=== PATIENT | male | born 1965 | race Caucasian/White ===

== ENCOUNTER → 2016-11-20 | Outpatient (CLI) | payer BC ==
[~2016-11-20] MED LIST: LIPI20TA PO; NAPR500T3 PO; VALI5TAB PO
--- NOTE | 2016-11-20 17:04 | REP ---
Low-dose lung screening CT: Wound the studies performed without IV contrast and presented at lung windowing only. Comparisons are 10/25/2015 and 04/27/2013. There is a 5 mm nodule in the lateral basilar segment of the left lower lobe on image 91. This is unchanged from both prior studies. There are no other lung nodules or masses. There is dependent atelectasis in the posterior sulcus of the right lung. This is unchanged. The study is insensitive for adenopathy. There are no pleural effusions. Cardiac size is normal. Impression: Category 2 low-dose lung screening CT. Probability of malignancy is less than 1%. Continued annual low-dose screening lung CT is recommended. Signed by Alonso Alberts MD 11/20/2016 04:56 P
== END ==
LOC: M RAD 16:23
PROVIDERS: ATTEND Internal Medicine Pulmonary Disease
DX: F17.210 Nicotine dependence, cigarettes, uncomplicated (principal)

== ENCOUNTER → 2017-11-26 | Outpatient (CLI) | payer BC | LOC: M RAD 14:32 | DX: Z12.2 Encounter for screening for malignant neoplasm of respiratory organs (principal); F17.218 Nicotine dependence, cigarettes, with other nicotine-induced disorders | CPT/HCPCS: G0297 ==

== ENCOUNTER 2018-06-12 22:00 | Inpatient (IN) | payer BC ==
[~2018-06-12] VITALS: Ht 182.9 cm; Wt 95.5 kg
[~2018-06-12 22:00] MED LIST changes: +NAPR-885 PO; -NAPR500T3 PO
[2018-06-12] MEDS ORDERED: INCR1INH INH (22:09)
[2018-06-12] MEDS ORDERED: BREO1INH3 INH (22:09)
[2018-06-12] MEDS ORDERED: DOXY-350 PO (22:09)
[2018-06-12] MEDS ORDERED: NS 1,000 ML IV ONE (23:00)
[2018-06-12] MEDS ORDERED: ISOVUE-370 76% 100ML VIAL (Q9967) As Ordered ONE (23:04)
[2018-06-13 00:06] LABS: ALBUMIN 3.8 GM/DL (3.2-5.2); ALT/SGPT 19 U/L (12-78); BILIRUBIN,DIRECT < 0.1 MG/DL (0.0-0.2); BILIRUBIN,TOTAL 0.4 MG/DL (0.2-1.0); BLOOD UREA NITROGEN 24 MG/DL (7-18); CALCIUM LEVEL 8.2 MG/DL (8.5-10.1); CARBON DIOXIDE LEVEL 24 MEQ/L (21-32); CHLORIDE LEVEL 108 MEQ/L (98-107); CREATININE FOR GFR 1.16 MG/DL (0.70-1.30); GLOMERULAR FILTRATION RATE > 60.0 (>56); GLUCOSE, FASTING 102 MG/DL (70-100); SODIUM LEVEL 138 MEQ/L (136-145)
[2018-06-13 00:13] LABS: BASO # 0.1 10^3/uL (0.0-0.2); BASO % 0.5 % (0.0-1.0); EOS # 0.2 10^3/uL (0.0-0.50); EOS % 1.3 % (0.0-3.0); HEMATOCRIT 45.8 % (42.0-52.0); HEMOGLOBIN 15.3 g/dl (13.5-17.5); LYMPH # 2.4 10^3/uL (1.5-4.5); LYMPH % 15.5 % (24.0-44.0); MEAN CORPUSCULAR HEMOGLOBIN 28.9 pg (27.0-33.0); MEAN CORPUSCULAR HGB CONC 33.4 g/dl (32.0-36.5); MEAN CORPUSCULAR VOLUME 86.6 fl (80.0-96.0); MONO # 0.9 10^3/uL (0.0-0.8); MONO % 6.1 % (0.0-5.0); NEUTROPHILS # 11.6 10^3/uL (1.8-7.7); NEUTROPHILS % 76.1 % (36.0-66.0); PLATELET COUNT, AUTOMATED 229 10^3/uL (150-450); RED BLOOD COUNT 5.29 10^6/uL (4.30-6.10); WHITE BLOOD COUNT 15.2 10^3/uL (4.0-10.0)
[2018-06-13 00:36] LABS: ERYTHROCYTE SEDIMENTATION RATE 6 mm/hr (0-20)
--- NOTE | 2018-06-13 01:21 | REPVR ---
EXAM: CT Neck With Contrast EXAM DATE/TIME: 06/12/2018 10:59 PM CLINICAL HISTORY: 53 years old, male; Pain; Cyst under chin; Swelling under chin TECHNIQUE: Imaging protocol: Axial computed tomography images of the neck with intravenous contrast. Coronal and sagittal reformatted images were created and reviewed. Radiation optimization: All CT scans at this facility use at least one of these dose optimization techniques: automated exposure control; mA and/or kV adjustment per patient size (includes targeted exams where dose is matched to clinical indication); or iterative reconstruction. Contrast material: ISO; Contrast volume: 75 ml; Contrast route: AC; COMPARISON: No relevant prior studies available. FINDINGS: Sinuses: There is a 1.9 cm mucous retention cyst in the base of the left maxillary sinus. There is mild opacification of the ethmoid sinuses. The sinuses were not fully imaged. Nasopharynx: Normal. Oropharynx: There is a punctate calcification in the left palatine tonsil, which represents a palatine tonsillolith and is the sequela of prior infection and/or inflammation. There is mild tonsillar hypertrophy. No tonsillar or peritonsillar abscess is noted. Hypopharynx: Normal. Larynx: Normal. Normal epiglottis. Retropharyngeal space: Normal. No retropharyngeal fluid collection. Submandibular/Parotid glands: Normal. Glands are normal in size. Thyroid: Normal. No enlarged or calcified nodules. Lymph nodes: No lymphadenopathy. Trachea: Normal. Lungs: There are paraseptal emphysematous changes in the lung apices. Vasculature: The vertebral arteries, common carotid arteries, internal carotid arteries, and external carotid arteries are patent. There is no dissection. The internal jugular veins are patent. There are mild atherosclerotic calcifications of the proximal left internal carotid artery and intracranial portions of both internal carotid arteries. Dental: There has been extraction of the right lower first molar. There is a small periapical lucency associated with the right upper second premolar, which may represent a periapical abscess (image 25 of the sagittal series 203). There is also a periapical lucency associated with the left lower first molar, which may represent a periapical abscess or residual periapical abscess status post root canal (image 39 of the sagittal series 203). Mastoid air cells: Normal as visualized. No mastoid effusion. Bones/joints: There are degenerative changes in the cervical spine. There is no fracture. Soft tissues: There is a 1.5 cm x 2.4 cm x 2.6 cm submandibular fluid collection just inferior to the mandibular symphysis with surrounding inflammatory fat stranding, which is compatible with a submandibular space abscess. IMPRESSION: 1. 1.5 cm x 2.4 cm x 2.6 cm submandibular space abscess. 2. Small periapical lucency associated with the right upper second premolar, which may represent a periapical abscess. 3. Periapical lucency associated with the left lower first molar, which may represent a periapical abscess or residual periapical abscess status post root canal. Electronically signed by: Marv Skaggs On 06/13/2018 01:20:52 AM
[2018-06-13] MEDS ORDERED: dexameTHASONE 20 MG/5 ML VIAL (J1100) IV ONE (02:00)
[2018-06-13] MEDS ORDERED: AMPICILLIN SOD/SULBACTAM SOD 3 GM in D5W MINI-BAG PLUS 100 ML IV ONE (02:00)
[2018-06-13] MEDS ORDERED: VENTAER INH (02:04)
[2018-06-13] MEDS ORDERED: ALBUTEROL 90 MCG/ACT 8GM HFA INHALER INH PRN (02:15)
[2018-06-13] MEDS ORDERED: ACETAMINOPHEN TAB 650MG DOSE (2X325MG) PO PRN (02:15)
[2018-06-13] MEDS ORDERED: diazePAM 5 MG TAB PO PRN (02:15)
--- NOTE | 2018-06-13 02:40 | HPEPDOC ---
General Date of Admission Jun 13, 2018 at 01:51 Chief Complaint The patient is a 53-year-old male admitted with a reason for visit of Submandib ular Abscess. History of Present Illness 53 y/o M had right lower molar tooth extraction on 05/01/2018 after that he was on PO Augmentin for 2 weeks. Pt noticed swelling underneath his chin few days ago, out patient CT was suggestive of submandibular salivary gland stone, pt was prescribed PO Doxycycline and outpatient ENT referral was given. Pt came to ER for c/o worsening swelling underneath his chin associated with pain. In ER pt was found with vitals of BP 146/67, HR 83, RR 16, Temp 98.0, SpO2-99% on RA; CT was suggestive of submandibular abscess. ER team consulted ENT service- recommendations were iv unasyn. Hospitalist service was consulted to admit the pt for further management. Pt was seen and examined at bedside in ER. Pt c/o swelling underneath his chin and mild pain. Home Medications Scheduled Atorvastatin Calcium (Lipitor) 20 Mg Tab, 20 MG PO QPM, (Reported) Doxycycline Monohydrate (Doxycycline) 100 Mg Capsule, 100 MG PO BID, (Reported) STARTED 06/11/18 IN AFTERNOON; FOR 10 DAYS Fluticasone/Vilanterol (Breo Ellipta 200-25 Mcg INH) 1 Each Blst.w.dev, 1 PUFF INH DAILY, (Reported) Umeclidinium [place] (Incruse Ellipta) 62.5 Mcg Blst.w.dev, 1 PUFF INH DAILY, (Reported) Scheduled PRN Albuterol Sulfate (Ventolin Hfa) 18 Gm Hfa.aer.ad, 2 PUFF INH Q4H PRN for SOB /COUGH, (Reported) Diazepam (Valium) 5 Mg Tab, 5 MG PO DAILY PRN for ANXIETY/AGITATION, (Reported) Naproxen (Naproxen) 500 Mg Tab, 1,000 MG PO TID PRN for PAIN, (Reported) Allergies Coded Allergies: ibuprofen (Verified Allergy, Unknown, 06/12/18) cyclobenzaprine (Verified Adverse Reaction, Unknown, 06/12/18) Past Medical History Medical History HLD, nicotine dependence, Asthma Surgical History Rhinoplasty, skin mole removal, screening colonoscopy Family History reviewed, non contributory Social History * Smoker: current smoker Alcohol: occationally Drugs: denies independent for activities of daily living, works at [employer] in [employer] A-FIB/CHADSVASC A-FIB History Current/History of A-Fib/PAF?: No Current Oral Anticoagulant The: No Review of Systems Other systems 10 points review of system was performed and it was negative except as per HPI Physical Examination General Exam: Positive: Cooperative, No Acute Distress Eye Exam: Positive: PERRLA ENT Exam: Positive: Mucous membr. moist/pink, Other ENT Chest Exam: Positive: Clear to auscultation, Normal air movement Heart Exam: Positive: Rate Normal, Normal S1, Normal S2 Abdomen Exam: Positive: Normal bowel sounds, Soft, Tenderness Extremity Exam: Positive: Normal pulses Skin Exam: Positive: Nl turgor and temperature Neuro Exam: Positive: Normal Speech, Strength at 5/5 X4 ext, Cranial Nerves 3- 12 NL Psych Exam: Positive: Mood NL Other physical findings submandibular area subcutaneous firm swelling, no open lesion 3x 3 cm. Vital Signs Vital Signs Date Time Temp Pulse Resp B/P (MAP) Pulse Ox O2 Delivery O2 Flow Rate FiO2 06/13/18 01:44 97.8 80 16 129/73 (91) 98 Room Air Laboratory Data Labs 24H Laboratory Tests 2 06/12/18 23:32: Immature Granulocyte % (Auto) 0.5, White Blood Count 15.2H, Red Blood Count 5.29, Hemoglobin 15.3, Hematocrit 45.8, Mean Corpuscular Volume 86.6, Mean Corpuscular Hemoglobin 28.9, Mean Corpuscular Hemoglobin Concent 33.4, Red Cell Distribution Width 14.4, Platelet Count 229, Neutrophils (%) (Auto) 76.1H, Lymphocytes (%) (Auto) 15.5L, Monocytes (%) (Auto) 6.1H, Eosinophils (%) (Auto) 1.3, Basophils (%) (Auto) 0.5, Neutrophils # (Auto) 11.6H, Lymphocytes # (Auto) 2.4, Monocytes # (Auto) 0.9H, Eosinophils # (Auto) 0.2, Basophils # (Auto) 0.1, Nucleated Red Blood Cells % (auto) 0.0, Erythrocyte Sedimentation Rate 6, Anion Gap 6L, Glomerular Filtration Rate > 60.0, Lactic Acid Level 0.7, Calcium Level 8.2L, Aspartate Amino Transf (AST/SGOT) 13, Alanine Aminotransferase (ALT/SGPT) 19, Alkaline Phosphatase 87, Total Bilirubin 0.4, Direct Bilirubin < 0.1, C- Reactive Protein, Quantitative 4.50H, Total Protein 7.0, Albumin 3.8, Albumin/Globulin Ratio 1.19 CBC/BMP Laboratory Tests 06/12/18 23:32 Red Blood Count 5.29, Mean Corpuscular Volume 86.6, Mean Corpuscular Hemoglobin 28.9, Mean Corpuscular Hemoglobin Concent 33.4, Red Cell Distribution Width 14.4, Neutrophils (%) (Auto) 76.1 H, Lymphocytes (%) (Auto) 15.5 L, Monocytes (%) (Auto) 6.1 H, Eosinophils (%) (Auto) 1.3, Basophils (%) (Auto) 0.5, Neutrophils # (Auto) 11.6 H, Lymphocytes # (Auto) 2.4, Monocytes # (Auto) 0.9 H, Eosinophils # (Auto) 0.2, Basophils # (Auto) 0.1 Microbiology Microbiology 06/12/18 Blood Culture, Received Pending 06/12/18 Blood Culture, Received Pending Assessment/Plan 53 y/o M c/o worsening swelling underneath his chin for past few days associated with mild pain. Labs and imaging studies reviewed Impression- submandibular abscess. Problems (1) Submandibular abscess Status: Acute Problem Text: iv unasyn, PO tylenol prn will f/u with ENT service (2) HLD (hyperlipidemia) Status: Chronic Problem Text: home meds (3) Nicotine dependence Status: Chronic Problem Text: pt was counselled about smoking cessation (4) Asthma Status: Chronic Response to Treatment: Stable Problem Text: home meds (5) Chronic neck and back pain Status: Chronic Response to Treatment: Stable Problem Text: home meds Plan / VTE VTE Prophylaxis Ordered?: No VTE Exclusion Mechanical Proph: Low Risk for VTE RACHEL CONTRERAS MD Jun 13, 2018 02:40
[2018-06-13 03:15] VITALS: BP 145/75
[2018-06-13 06:00] VITALS: BP 123/79
[2018-06-13 06:49] LABS: INR 1.07
[2018-06-13 06:50] LABS: PARTIAL THROMBOPLASTIN TIME 33.4 SECONDS (25.4-37.6)
[2018-06-13 08:01] LABS: BASO % 0.3 % (0.0-1.0); EOS # 0.1 10^3/uL (0.0-0.50); EOS % 0.5 % (0.0-3.0); HEMATOCRIT 45.8 % (42.0-52.0); HEMOGLOBIN 14.9 g/dl (13.5-17.5); LYMPH # 1.1 10^3/uL (1.5-4.5); MEAN CORPUSCULAR HEMOGLOBIN 28.7 pg (27.0-33.0); MEAN CORPUSCULAR HGB CONC 32.5 g/dl (32.0-36.5); MEAN CORPUSCULAR VOLUME 88.2 fl (80.0-96.0); MONO # 0.2 10^3/uL (0.0-0.8); MONO % 1.7 % (0.0-5.0); PLATELET COUNT, AUTOMATED 217 10^3/uL (150-450); RED BLOOD COUNT 5.19 10^6/uL (4.30-6.10); WHITE BLOOD COUNT 13.5 10^3/uL (4.0-10.0)
[2018-06-13 08:05] LABS: BLOOD UREA NITROGEN 18 MG/DL (7-18); CALCIUM LEVEL 8.4 MG/DL (8.5-10.1); CARBON DIOXIDE LEVEL 26 MEQ/L (21-32); CHLORIDE LEVEL 112 MEQ/L (98-107); GLOMERULAR FILTRATION RATE > 60.0 (>56); GLUCOSE, FASTING 105 MG/DL (70-100); MAGNESIUM LEVEL 2.1 MG/DL (1.8-2.4); POTASSIUM SERUM 4.8 MEQ/L (3.5-5.1); SODIUM LEVEL 142 MEQ/L (136-145)
[2018-06-13] MEDS: AMPICILLIN SOD/SULBACTAM SOD 3 GM in D5W MINI-BAG PLUS 100 ML IV SCH ×3 (09:15→20:27)
[2018-06-13] MEDS: NAPROXEN 250 MG TAB PO PRN (09:29)
[2018-06-13] MEDS: NICOTINE 21MG/24HR 1 EA TRANSDERMAL TD SCH (09:30)
[2018-06-13] MEDS: SYMBICORT 80/4.5MCG INHALER 6GM INH SCH ×2 (10:43→20:50)
--- NOTE | 2018-06-13 11:39 | IPNPDOC ---
Date Seen The patient was seen on 06/13/18. Progress Note SUBJECTIVE: Patient continues to have discomfort in his chin and difficulty swallowing this morning. Otherwise no complaints. ENT and Oral surgery were called and will be seeing the patient today. OBJECTIVE PHYSICAL EXAMINATION: VITAL SIGNS: Please see below. GENERAL: laying in bed, no acute distress HEENT: somewhat large, firm mass in midline of submandibular region, small palpable lymph nodes noted bilaterally below chin CARDIOVASCULAR: RRR, no m/r/g, normal S1/S2 RESPIRATORY: clear to auscultation bilaterally, no adventitious breath sounds appreciated ABDOMINAL: soft, nontender, +BS, no masses/organomegaly EXTREMITIES: no clubbing/cyanosis/edema NEUROLOGICAL: CN 2-12 intact without any focal deficits PSYCHOLOGICAL: normal mood/affect LABORATORY DATA, IMAGING STUDIES, MICROBIOLOGY: Please see below. DVT prophylaxis ordered?: no ASSESSMENT AND PLAN: This is a 53 YO M with recent tooth extraction who later developed submandibular abscess that failed antibiotics. He is currently on IV antibiotic therapy and will be seen by ENT and oral surgery for possible drainage and/or tooth extraction. PROBLEMS: 1. Submental abscess: -ENT and Oral surgery on consult -Continue IV Unasyn for now -NPO for possible procedure today -s/p Dexamethasone in ED -s/p 1L fluid bolus in ED - Discussed with ENT; have performed a bedside aspiration and removed pus from Submental abscess; fluid sent for analysis - Will adjust antibiotics based on culture results 2. Nicotine dependence: -Continue NicoDerm patch 3. HLD: -Continue Lipitor 4. Asthma: -continue Symbicort, Albuterol PRN 5. Chronic back/neck pain: -Naprosyn for pain PRN DVT prophylaxis - Will start Heparin DISPOSITION: pending clinical improvement, possible procedure VS, I&O, 24H, Fishbone Vital Signs/I&O Vital Signs Date Time Temp Pulse Resp B/P (MAP) Pulse Ox O2 Delivery O2 Flow Rate FiO2 06/13/18 06:00 98.7 70 18 123/79 (94) 95 06/13/18 03:10 Room Air I&O- Last 24 Hours up to 6 AM 06/13/18 06:00 Intake Total 340 ml Balance 340 ml Laboratory Data 24H LABS Laboratory Tests 2 06/12/18 23:32: Immature Granulocyte % (Auto) 0.5, White Blood Count 15.2H, Red Blood Count 5.29, Hemoglobin 15.3, Hematocrit 45.8, Mean Corpuscular Volume 86.6, Mean Corpu scular Hemoglobin 28.9, Mean Corpuscular Hemoglobin Concent 33.4, Red Cell Distribution Width 14.4, Platelet Count 229, Neutrophils (%) (Auto) 76.1H, Lymphocytes (%) (Auto) 15.5L, Monocytes (%) (Auto) 6.1H, Eosinophils (%) (Auto) 1.3, Basophils (%) (Auto) 0.5, Neutrophils # (Auto) 11.6H, Lymphocytes # (Auto) 2.4, Monocytes # (Auto) 0.9H, Eosinophils # (Auto) 0.2, Basophils # (Auto) 0.1, Nucleated Red Blood Cells % (auto) 0.0, Erythrocyte Sedimentation Rate 6, Anion Gap 6L, Glomerular Filtration Rate > 60.0, Lactic Acid Level 0.7, Calcium Level 8.2L, Aspartate Amino Transf (AST/SGOT) 13, Alanine Aminotransferase (ALT/SGPT) 19, Alkaline Phosphatase 87, Total Bilirubin 0.4, Direct Bilirubin < 0.1, C- Reactive Protein, Quantitative 4.50H, Total Protein 7.0, Albumin 3.8, Albumin/Globulin Ratio 1.19 06/13/18 06:00: Immature Granulocyte % (Auto) 0.5, White Blood Count 13.5H, Red Blood Count 5.19, Hemoglobin 14.9, Hematocrit 45.8, Mean Corpuscular Volume 88.2, Mean Corpuscular Hemoglobin 28.7, Mean Corpuscular Hemoglobin Concent 32.5, Red Cell Distribution Width 14.5, Platelet Count 217, Neutrophils (%) (Auto) 89.0H, Lymphocytes (%) (Auto) 8.0L, Monocytes (%) (Auto) 1.7, Eosinophils (%) (Auto) 0.5, Basophils (%) (Auto) 0.3, Neutrophils # (Auto) 12.0H, Lymphocytes # (Auto) 1.1L, Monocytes # (Auto) 0.2, Eosinophils # (Auto) 0.1, Basophils # (Auto) 0.0, Nucleated Red Blood Cells % (auto) 0.0, Anion Gap 4L, Glomerular Filtration Rate > 60.0, Calcium Level 8.4L, Prothrombin Time 14.0, Prothromb Time International Ratio 1.07, Activated Partial Thromboplast Time 33.4, Blood Urea Nitrogen 18, Creatinine 1.20, Sodium Level 142, Potassium Level 4.8, Chloride Level 112H, Carbon Dioxide Level 26, Magnesium Level 2.1 CBC/BMP Laboratory Tests 06/12/18 23:32 Red Blood Count 5.29, Mean Corpuscular Volume 86.6, Mean Corpuscular Hemoglobin 28.9, Mean Corpuscular Hemoglobin Concent 33.4, Red Cell Distribution Width 14.4, Neutrophils (%) (Auto) 76.1 H, Lymphocytes (%) (Auto) 15.5 L, Monocytes (%) (Auto) 6.1 H, Eosinophils (%) (Auto) 1.3, Basophils (%) (Auto) 0.5, Neutrophils # (Auto) 11.6 H, Lymphocytes # (Auto) 2.4, Monocytes # (Auto) 0.9 H, Eosinophils # (Auto) 0.2, Basophils # (Auto) 0.1 06/13/18 06:00 Red Blood Count 5.19, Mean Corpuscular Volume 88.2, Mean Corpuscular Hemoglobin 28.7, Mean Corpuscular Hemoglobin Concent 32.5, Red Cell Distribution Width 14.5, Neutrophils (%) (Auto) 89.0 H, Lymphocytes (%) (Auto) 8.0 L, Monocytes (%) (Auto) 1.7, Eosinophils (%) (Auto) 0.5, Basophils (%) (Auto) 0.3, Neutrophils # (Auto) 12.0 H, Lymphocytes # (Auto) 1.1 L, Monocytes # (Auto) 0.2, Eosinophils # (Auto) 0.1, Basophils # (Auto) 0.0, Calcium Level 8.4 L Microbiology Microbiology 06/12/18 Blood Culture, Received Pending 06/12/18 Blood Culture, Received Pending GME ATTESTATION GME ATTESTATION My faculty preceptor for this patient encounter was physically present during the encounter and was fully available. All aspects of the patient interview, examination, medical decision making process, and medical care plan development were reviewed and approved by the faculty preceptor. The faculty preceptor is aware and concurs with the plan as stated in the body of this note and will attest to such by his/her cosignature. ATTENDING NOTE I, Herman Mahmood, have both independently examined this patient as well as reviewed the documentation. I have discussed in detail with the resident the findings and plan of treatment as documented in the residents documentation. I will continue to follow the patient and offer further guidance to the patients care as necessary during this hospital stay. TIFFANIE VALLES MD Jun 13, 2018 11:39 HERMAN MAHMOOD MD Jun 13, 2018 15:42
[2018-06-13] MEDS ORDERED: LIDOCAINE 1% MDV 20ML VIAL SC STA (12:00)
[2018-06-13 14:00] VITALS: BP 132/78
[2018-06-13] MEDS: HEPARIN SOD (PORCINE) 5000 UNITS/ML VIAL SQ SCH ×2 (16:08→20:27)
[2018-06-13] MEDS: ATORVASTATIN 20 MG TAB PO SCH (20:27)
[2018-06-13 22:00] VITALS: BP 130/74
[2018-06-14] MEDS: AMPICILLIN SOD/SULBACTAM SOD 3 GM in D5W MINI-BAG PLUS 100 ML IV SCH ×4 (03:02→20:33)
[2018-06-14] MEDS: HEPARIN SOD (PORCINE) 5000 UNITS/ML VIAL SQ SCH ×3 (05:34→21:14)
[2018-06-14 06:00] VITALS: BP 118/69
[2018-06-14 07:01] LABS: BASO % 0.3 % (0.0-1.0); EOS # 0.1 10^3/uL (0.0-0.50); EOS % 0.8 % (0.0-3.0); HEMATOCRIT 42.7 % (42.0-52.0); HEMOGLOBIN 13.9 g/dl (13.5-17.5); LYMPH # 3.1 10^3/uL (1.5-4.5); LYMPH % 20.8 % (24.0-44.0); MEAN CORPUSCULAR HEMOGLOBIN 28.3 pg (27.0-33.0); MEAN CORPUSCULAR HGB CONC 32.6 g/dl (32.0-36.5); MEAN CORPUSCULAR VOLUME 86.8 fl (80.0-96.0); MONO # 0.8 10^3/uL (0.0-0.8); MONO % 5.7 % (0.0-5.0); NEUTROPHILS # 10.6 10^3/uL (1.8-7.7); NEUTROPHILS % 71.8 % (36.0-66.0); PLATELET COUNT, AUTOMATED 207 10^3/uL (150-450); RED BLOOD COUNT 4.92 10^6/uL (4.30-6.10); WHITE BLOOD COUNT 14.7 10^3/uL (4.0-10.0)
[2018-06-14 07:23] LABS: ALBUMIN 3.3 GM/DL (3.2-5.2); ALT/SGPT 18 U/L (12-78); BILIRUBIN,TOTAL 0.3 MG/DL (0.2-1.0); BLOOD UREA NITROGEN 16 MG/DL (7-18); CALCIUM LEVEL 8.6 MG/DL (8.5-10.1); CARBON DIOXIDE LEVEL 27 MEQ/L (21-32); CHLORIDE LEVEL 112 MEQ/L (98-107); CREATININE FOR GFR 1.14 MG/DL (0.70-1.30); GLOMERULAR FILTRATION RATE > 60.0 (>56); GLUCOSE, FASTING 104 MG/DL (70-100); MAGNESIUM LEVEL 2.1 MG/DL (1.8-2.4); POTASSIUM SERUM 3.9 MEQ/L (3.5-5.1); SODIUM LEVEL 143 MEQ/L (136-145); TOTAL PROTEIN 6.7 GM/DL (6.4-8.2)
[2018-06-14 07:47] LABS: C REACTIVE PROTEIN QUANTITATIV 2.72 MG/DL (0.00-0.30)
[2018-06-14] MEDS: SYMBICORT 80/4.5MCG INHALER 6GM INH SCH ×2 (08:30→21:04)
[2018-06-14] MEDS: NICOTINE 21MG/24HR 1 EA TRANSDERMAL TD SCH (09:06)
--- NOTE | 2018-06-14 13:39 | IPNPDOC ---
Text Note Date of Service The patient was seen on 06/14/18. NOTE Subjective: Patient is a 53-year-old male with a PMHx of Asthma, DLP, Nicotine dependence who presented to the ER with swelling under his chin. Patient r eported that he had a molar tooth extraction on 05/01/2018 and was given Augmentin for 2 weeks. He noticed a small bump under his chin. At that point and his primary care provider had provided him doxycycline and had performed outpatient CT scan which revealed submandibular salary gland stone. Patient failed to improve with doxycycline and presented to the emergency room for further evaluation. Hospice services called for admission. ENT was called on consultation. Patient was seen and examined at the bedside. He reports that the swelling under his chin has improved. He denies any fevers or chills. Denies any nausea, vomiting, abdominal pain, constipation, diarrhea or urinary discomfort. Patient denies chest pain, SOB or palpitations. Objective: Vitals (See below) General: Lying in bed, no acute distress, comfortable, AAOx3 HEENT: Submental abscess with dressing present; appears significantly smaller than yesterday CVS: RRR, +S1S2 Lungs: Fair air entry b/l, -w/r/r Abdomen: Soft, ND, NT Extremities: - Edema, - Calf tenderness Assessment and plan: Below the chin swelling / warmth / tenderness - likely 2/2 Submental abscess - Presented to the emergency room after failure of outpatient antibiotics with Doxycycline - Physical reveals improvement in submental swelling - Cultures 06/13: Pending; Blood cultures 06/12: No growth at 24 hours - s/p I&D with ENT; Dr. Pierce on 06/13/2018 - c/w IV Unasyn for coverage - ENT on consultation Asthma - no evidence of exacerbation - c/w inhaled therapy as ordered DLP - c/w Atorvastatin Nicotine dependence - Advised smoking cessation - c/w Nicotine patch Chronic back / neck pain - c/w Naproxen / Tylenol PRN DVT prophylaxis - c/w Heparin Disposition: - Awaiting culture results Mireya MAIER, I+O Mireya MAIER, I+O Laboratory Tests 06/14/18 06:35 Red Blood Count 4.92, Mean Corpuscular Volume 86.8, Mean Corpuscular Hemoglobin 28.3, Mean Corpuscular Hemoglobin Concent 32.6, Red Cell Distribution Width 14.3, Neutrophils (%) (Auto) 71.8 H, Lymphocytes (%) (Auto) 20.8 L, Monocytes (%) (Auto) 5.7 H, Eosinophils (%) (Auto) 0.8, Basophils (%) (Auto) 0.3, Neutrophils # (Auto) 10.6 H, Lymphocytes # (Auto) 3.1, Monocytes # (Auto) 0.8, Eosinophils # (Auto) 0.1, Basophils # (Auto) 0.0, Calcium Level 8.6, Aspartate Amino Transf (AST/SGOT) 10, Alanine Aminotransferase (ALT/SGPT) 18, Alkaline Phosphatase 74, Total Bilirubin 0.3, Total Protein 6.7, Albumin 3.3 Vital Signs Date Time Temp Pulse Resp B/P (MAP) Pulse Ox O2 Delivery O2 Flow Rate FiO2 06/14/18 06:00 98.4 70 18 118/69 (85) 96 06/13/18 03:10 Room Air I&O- Last 24 Hours up to 6 AM 06/14/18 06:00 Intake Total 2800 ml Balance 2800 ml VALENTE MAHMOOD MD Jun 14, 2018 13:39
[2018-06-14 14:00] VITALS: BP 106/56
[2018-06-14] MEDS: ATORVASTATIN 20 MG TAB PO SCH (20:33)
[2018-06-14 22:00] VITALS: BP 137/78
[2018-06-15] MEDS: AMPICILLIN SOD/SULBACTAM SOD 3 GM in D5W MINI-BAG PLUS 100 ML IV SCH ×4 (03:04→22:47)
[2018-06-15] MEDS: HEPARIN SOD (PORCINE) 5000 UNITS/ML VIAL SQ SCH ×3 (05:53→22:48)
[2018-06-15 06:00] VITALS: BP 121/73
[2018-06-15 06:10] LABS: BASO # 0.1 10^3/uL (0.0-0.2); BASO % 0.8 % (0.0-1.0); EOS # 0.2 10^3/uL (0.0-0.50); EOS % 2.2 % (0.0-3.0); HEMATOCRIT 43.2 % (42.0-52.0); HEMOGLOBIN 14.1 g/dl (13.5-17.5); LYMPH # 3.8 10^3/uL (1.5-4.5); LYMPH % 44.2 % (24.0-44.0); MEAN CORPUSCULAR HEMOGLOBIN 28.5 pg (27.0-33.0); MEAN CORPUSCULAR HGB CONC 32.6 g/dl (32.0-36.5); MEAN CORPUSCULAR VOLUME 87.4 fl (80.0-96.0); MONO # 0.6 10^3/uL (0.0-0.8); MONO % 7.3 % (0.0-5.0); NEUTROPHILS # 3.8 10^3/uL (1.8-7.7); NEUTROPHILS % 44.9 % (36.0-66.0); PLATELET COUNT, AUTOMATED 211 10^3/uL (150-450); RED BLOOD COUNT 4.94 10^6/uL (4.30-6.10); WHITE BLOOD COUNT 8.5 10^3/uL (4.0-10.0)
[2018-06-15 06:39] LABS: BLOOD UREA NITROGEN 16 MG/DL (7-18); C REACTIVE PROTEIN QUANTITATIV 1.19 MG/DL (0.00-0.30); CALCIUM LEVEL 8.1 MG/DL (8.5-10.1); CARBON DIOXIDE LEVEL 28 MEQ/L (21-32); CHLORIDE LEVEL 111 MEQ/L (98-107); CREATININE FOR GFR 1.21 MG/DL (0.70-1.30); GLOMERULAR FILTRATION RATE > 60.0 (>56); GLUCOSE, FASTING 88 MG/DL (70-100); POTASSIUM SERUM 3.7 MEQ/L (3.5-5.1); SODIUM LEVEL 142 MEQ/L (136-145)
[2018-06-15] MEDS: SYMBICORT 80/4.5MCG INHALER 6GM INH SCH ×2 (08:10→21:27)
[2018-06-15] MEDS: NICOTINE 21MG/24HR 1 EA TRANSDERMAL TD SCH (09:37)
--- NOTE | 2018-06-15 10:03 | IPNPDOC ---
Text Note Date of Service The patient was seen on 06/15/18. NOTE SUBJECTIVE: Agent was interviewed and examined in his hospital room. Patient was found to be sitting in his chair, and on clothing utilizing his cell phone in no acute distress. Patient reports that the swelling has continued to decrease. Pain is minimal. He was seen by ENT late last evening who mentioned the possibility of a subsequent IND today. He denies any fevers or chills, no nausea or vomiting, abdominal pain, constipation, diarrhea or difficulty urinating. Patient denies any chest pain, shortness of breath or palpitations. OBJECTIVE: VITALS: Please see below. EXAM: GENERAL: Awake, alert and oriented 3, in no acute distress, dressed in home clothes, seated in hospital chair HEAD: 2.5 cm x 1.5 cm indurated, mildly tender submandibular lesion without any obvious erythema or drainage. otherwise normocephalic, atraumatic EENT: PERRLA, EOMI, sclera nonicteric, mucous membranes moist NECK: No restriction in range of motion secondary to abscess. No lymphadenopathy, no tracheal deviation CARDIAC: Regular rate and rhythm, normal S1 and S2, without murmur PULM: Clear to auscultation bilaterally, good air movement without evidence of wheezes rales or rhonchi ABDOMEN: Soft and nontender without guarding or distention, no masses, no hepatosplenomegally EXTREMITIES: Able to move equally and freely bilaterally. No weakness. No pedal edema or calf tenderness NEURO: No focal neurologic deficits SKIN: Submental lesion as described above, No rashes PSYCH: Mood and affect are appropriate LABORATORY: Please see below. IMAGING: Neck CT (06/12/18): 1.5 cm 2.4 cm 2.6 cm submandibular space abscess. A small periapical lucency noted in right upper second premolar which may represent a periapical abscess. Periapical lucency associated with left lower first molar which may represent a periapical abscess or residual periapical abscess status post root canal. MICRO: Please see below. Wound culture pending MRSA screen pending ASSESSMENT: Patient is a 53-year-old white male with a recent tooth extraction who later developed submandibular abscess that failed outpatient antibiotics. Patient is currently on IV antibiotic therapy, status post IND. PLAN: Submental abscess: ENT is following the patient, s/p IND on 06/13/18. Question of repeat IND today. Currently being treated with IV Unasyn. Cultures are pending, results of which will allow for more targeted antibiotic therapy. Gram stains indicating many WBCs and gram-positive cocci. Plan to transition patient to by mouth medications and hopeful discharge in the coming days. - Discussed with Dr. Mason; Additional drainage with ENT today Asthma: No acute exacerbation, patient utilizing Symbicort 80/4.5 Dyslipidemia: Patient is continued on his home atorvastatin Nicotine dependence: Patient reports utilizing nicotine patch with adequate relief. He shares that he is is planning smoking cessation upon discharge Chronic back and neck pain: Patient has orders for naproxen, last administered on 06/13, and Tylenol when necessary DVT PROPHYLAXIS: Patient is receiving subcutaneous heparin A-FIB/CHADSVASC A-FIB History Current/History of A-Fib/PAF?: No VS,Fishbone, I+O VS, Fishbone, I+O Laboratory Tests 06/15/18 05:44 Red Blood Count 4.94, Mean Corpuscular Volume 87.4, Mean Corpuscular Hemoglobin 28.5, Mean Corpuscular Hemoglobin Concent 32.6, Red Cell Distribution Width 14.3, Neutrophils (%) (Auto) 44.9, Lymphocytes (%) (Auto) 44.2 H, Monocytes (%) (Auto) 7.3 H, Eosinophils (%) (Auto) 2.2, Basophils (%) (Auto) 0.8, Neutrophils # (Auto) 3.8, Lymphocytes # (Auto) 3.8, Monocytes # (Auto) 0.6, Eosinophils # (Auto) 0.2, Basophils # (Auto) 0.1, Calcium Level 8.1 L Vital Signs Date Time Temp Pulse Resp B/P (MAP) Pulse Ox O2 Delivery O2 Flow Rate FiO2 06/15/18 06:00 97.7 60 18 121/73 (89) 96 06/13/18 03:10 Room Air I&O- Last 24 Hours up to 6 AM 06/15/18 06:00 Intake Total 2620 ml Output Total 1 ml Balance 2619 ml GME ATTESTATION GME ATTESTATION My faculty preceptor for this patient encounter was physically present during the encounter and was fully available. All aspects of the patient interview, examination, medical decision making process, and medical care plan development were reviewed and approved by the faculty preceptor. The faculty preceptor is aware and concurs with the plan as stated in the body of this note and will attest to such by his/her cosignature. ATTENDING NOTE I, Herman Mahmood, have both independently examined this patient as well as reviewed the documentation. I have discussed in detail with the resident the findings and plan of treatment as documented in the residents documentation. I will continue to follow the patient and offer further guidance to the patients care as necessary during this hospital stay. FRANEC SANCHEZ DO Jun 15, 2018 10:03 HERMAN MAHMOOD MD Jun 15, 2018 21:36
[2018-06-15 14:00] VITALS: BP 132/71
[2018-06-15 22:00] VITALS: BP 111/76
[2018-06-15] MEDS ORDERED: LIDOCAINE 1% MDV 20ML VIAL SC ONE (22:15)
[2018-06-15] MEDS: ATORVASTATIN 20 MG TAB PO SCH (22:47)
[2018-06-15] MEDS: NAPROXEN 250 MG TAB PO PRN (22:53)
[2018-06-16] MEDS: AMPICILLIN SOD/SULBACTAM SOD 3 GM in D5W MINI-BAG PLUS 100 ML IV SCH ×2 (03:30→10:16)
[2018-06-16] MEDS: HEPARIN SOD (PORCINE) 5000 UNITS/ML VIAL SQ SCH (05:27)
[2018-06-16 06:00] VITALS: BP 132/81
[2018-06-16 07:07] LABS: BASO # 0.1 10^3/uL (0.0-0.2); BASO % 0.5 % (0.0-1.0); EOS # 0.2 10^3/uL (0.0-0.50); HEMATOCRIT 45.2 % (42.0-52.0); HEMOGLOBIN 14.6 g/dl (13.5-17.5); LYMPH # 3.2 10^3/uL (1.5-4.5); LYMPH % 35.4 % (24.0-44.0); MEAN CORPUSCULAR HEMOGLOBIN 28.3 pg (27.0-33.0); MEAN CORPUSCULAR HGB CONC 32.3 g/dl (32.0-36.5); MEAN CORPUSCULAR VOLUME 87.8 fl (80.0-96.0); MONO # 0.6 10^3/uL (0.0-0.8); MONO % 6.6 % (0.0-5.0); NEUTROPHILS % 54.7 % (36.0-66.0); PLATELET COUNT, AUTOMATED 235 10^3/uL (150-450); RED BLOOD COUNT 5.15 10^6/uL (4.30-6.10); WHITE BLOOD COUNT 9.1 10^3/uL (4.0-10.0)
[2018-06-16 07:31] LABS: BLOOD UREA NITROGEN 17 MG/DL (7-18); CALCIUM LEVEL 8.4 MG/DL (8.5-10.1); CARBON DIOXIDE LEVEL 30 MEQ/L (21-32); CHLORIDE LEVEL 107 MEQ/L (98-107); CREATININE FOR GFR 1.16 MG/DL (0.70-1.30); GLOMERULAR FILTRATION RATE > 60.0 (>56); GLUCOSE, FASTING 94 MG/DL (70-100); MAGNESIUM LEVEL 2.2 MG/DL (1.8-2.4); POTASSIUM SERUM 3.3 MEQ/L (3.5-5.1); SODIUM LEVEL 140 MEQ/L (136-145)
[2018-06-16] MEDS: SYMBICORT 80/4.5MCG INHALER 6GM INH SCH (08:10)
[2018-06-16] MEDS ORDERED: AUGM875T28 PO (08:47)
[2018-06-16] MEDS ORDERED: NICO21PAT TD (08:47)
[2018-06-16] MEDS: NICOTINE 21MG/24HR 1 EA TRANSDERMAL TD SCH (10:17)
--- NOTE | 2018-06-16 10:48 | CR ---
DATE OF CONSULTATION: CHIEF COMPLAINT: Swelling of the midline upper neck. HISTORY OF PRESENT ILLNESS: This is a 53-year-old male who noticed a nodule in the mid chin area for the past 2-3 weeks. He has been treated with an antibiotic with no resolution of the nodule. The mass was progressively enlarging associated with tenderness over the past several days. Eventually he presented to [facility] Emergency Department in the evening of June 12, 2018. He was noticing some trouble with swallowing. He has no acute respiratory distress. He has no prior surgery done to the head or neck region. CT scan of the neck shows a submental space of fluid collection with associated straining compatible with edema. PAST MEDICAL HISTORY: 1. Significant for recent dental extraction done to the right lower molar for which he was on oral Augmentin for about two weeks. 2. Asthma. 3. Hyperlipidemia. PAST SURGICAL HISTORY: Rhinoplasty. MEDICATIONS: - atorvastatin - doxycycline - fluticasone - albuterol - diazepam - naproxen ALLERGIES: IBUPROFEN and CYCLOBENZAPRINE. FAMILY HISTORY Noncontributory. SOCIAL HISTORY: Smoker, occasional alcohol user. Denies use of recreational drugs. REVIEW OF SYSTEMS: Noted above in the history of present illness, otherwise negative. PHYSICAL EXAMINATION: GENERAL: The patient appears in no acute distress. No stridor or wheezes noted. No use of accessory neck muscles. EAR: Normal pinna. Normal external auditory canal. NOSE: Normal external nasal anatomy. No active rhinorrhea. ORAL: Moist oral mucosa. Floor of the mouth is not elevated. Dentition in good repair. No discharge noted from the mucosa overlying the mandible. Tongue mobile with symmetrical motion. Oropharynx unremarkable. Posterior pharyngeal clear. NECK: 3 cm submental tender mass was palpated. No cervical lymphadenopathy. Trachea midline, no thyromegaly. LABORATORY DATA: White count 15.2, ESR 6. Blood culture pending. PROCEDURE: Needle aspiration of the submental abscess. The patient was in the upper position on the hospital bed. The submental area was prepped and draped in the usual fashion for the procedure. The skin overlying the submental swelling was infiltrated with 1% lidocaine with 1:100,000 epinephrine. Using an 18 gauge needle 9 mL of purulent discharge was successfully aspirated from the submental region. The aspirate was then sent for culture and sensitivity (C and S), gram stain, anaerobic culture and fungal culture. IMPRESSION: This 53-year-old man has a submental abscess. PLAN: Aspiration of the abscess fluid was successfully performed at the bedside today. He is to continue with the intravenous Unasyn as per management by the hospitalist. Further antibiotic management will be directed by the culture and sensitivity result. Once the patient is discharged he should followup with my office in one week's time.
--- NOTE | 2018-06-16 11:38 | DS.PDOC ---
Discharge Summary General Date of Admission Jun 16, 2018 at 06:57 Date of Discharge 06/16/2018 Discharge Summary PROCEDURES PERFORMED DURING STAY: [None]. ADMITTING DIAGNOSES / DISCHARGE DIAGNOSES: Below the chin swelling / warmth / tenderness - likely 2/2 Submental abscess Asthma DLP Nicotine dependence Chronic back / neck pain DVT prophylaxis COMPLICATIONS/CHIEF COMPLAINT: Swelling / Tenderness / Warmth under chin HISTORY OF PRESENT ILLNESS: Patient is a 53-year-old male with a PMHx of Asthma, DLP, Nicotine dependence who presented to the ER with swelling under his chin. Patient rep orted that he had a molar tooth extraction on 05/01/2018 and was given Augmentin for 2 weeks. He noticed a small bump under his chin. At that point and his primary care provider had provided him doxycycline and had performed outpatient CT scan which revealed submandibular salary gland stone. Patient failed to improve with doxycycline and presented to the emergency room for further evaluation. Hospice services called for admission. ENT was called on consultation. HOSPITAL COURSE: Below the chin swelling / warmth / tenderness - likely 2/2 Submental abscess - Presented to the emergency room after failure of outpatient antibiotics with Doxycycline - Physical reveals improvement in submental swelling - Cultures 06/13: Pending; Blood cultures 06/12: No growth at 24 hours - s/p I&D with ENT; Dr. George on 06/13/2018 and again on 06/15/2018 - c/w IV Unasyn for coverage - ENT on consultation; will have outpatient follow within 7-10 days Asthma - no evidence of exacerbation - c/w inhaled therapy as ordered DLP - c/w Atorvastatin Nicotine dependence - Advised smoking cessation - c/w Nicotine patch; will provide this on discharge Chronic back / neck pain - c/w Naproxen / Tylenol PRN DVT prophylaxis - c/w Heparin DISCHARGE MEDICATIONS: Please see below. ALLERGIES: Please see below. PHYSICAL EXAMINATION ON DISCHARGE: Vitals (See below) General: Lying in bed, no acute distress, comfortable, AAOx3 HEENT: Submental abscess; appears significantly smaller; no tenderness, warmth or discharge noted CVS: RRR, +S1S2 Lungs: Fair air entry b/l, there does not appear to be any auscultated evidence of wheezing, rhonchi or rales Abdomen: Abdomen remains soft, without any distention or tenderness Extremities: No evidence of lower extremity edema, - Calf tenderness LABORATORY DATA: Please see below. ACTIVITY: [As tolerated]. DISCHARGE PLAN: Follow-up with Dr. Russel Drake and Dr. George within 7 days Remain complaint with treatment plan and medications Return to the ER if you experience any problems DISPOSITION: Home DISCHARGE CONDITION: [Stable]. TIME SPENT ON DISCHARGE: Greater than [35] minutes. Vital Signs/I&Os Vital Signs Date Time Temp Pulse Resp B/P (MAP) Pulse Ox O2 Delivery O2 Flow Rate FiO2 06/16/18 06:00 96.9 57 18 132/81 (98) 99 06/13/18 03:10 Room Air I&O- Last 24 Hours up to 6 AM 06/16/18 06:00 Intake Total 2970 ml Output Total 0 ml Balance 2970 ml Laboratory Data Labs 24H Laboratory Tests 2 06/16/18 06:36: Immature Granulocyte % (Auto) 0.8, White Blood Count 9.1, Red Blood Count 5.15, Hemoglobin 14.6, Hematocrit 45.2, Mean Corpuscular Volume 87.8, Mean Corpuscular Hemoglobin 28.3, Mean Corpuscular Hemoglobin Concent 32.3, Red Cell Distribution Width 14.3, Platelet Count 235, Neutrophils (%) (Auto) 54.7, Lymphocytes (%) (Auto) 35.4, Monocytes (%) (Auto) 6.6H, Eosinophils (%) (Auto) 2.0, Basophils (%) (Auto) 0.5, Neutrophils # (Auto) 5.0, Lymphocytes # (Auto) 3.2, Monocytes # (Auto) 0.6, Eosinophils # (Auto) 0.2, Basophils # (Auto) 0.1, Nucleated Red Blood Cells % (auto) 0.0, Anion Gap 3L, Glomerular Filtration Rate > 60.0, Blood Urea Nitrogen 17, Creatinine 1.16, Sodium Level 140, Potassium Level 3.3L, Chloride Level 107, Carbon Dioxide Level 30, Calcium Level 8.4L, Magnesium Level 2.2, C-Reactive Protein, Quantitative 0.70H CBC/BMP Laboratory Tests 06/16/18 06:36 Red Blood Count 5.15, Mean Corpuscular Volume 87.8, Mean Corpuscular Hemoglobin 28.3, Mean Corpuscular Hemoglobin Concent 32.3, Red Cell Distribution Width 14.3, Neutrophils (%) (Auto) 54.7, Lymphocytes (%) (Auto) 35.4, Monocytes (%) (Auto) 6.6 H, Eosinophils (%) (Auto) 2.0, Basophils (%) (Auto) 0.5, Neutrophils # (Auto) 5.0, Lymphocytes # (Auto) 3.2, Monocytes # (Auto) 0.6, Eosinophils # (Auto) 0.2, Basophils # (Auto) 0.1, Calcium Level 8.4 L Microbiology Microbiology 06/12/18 Blood Culture - Preliminary, Resulted No Growth after 72 hours. All specime... 06/12/18 Blood Culture - Preliminary, Resulted No Growth after 72 hours. All specime... 06/14/18 MRSA Screen - Final, Complete 06/13/18 Gram Stain - Final, Complete 06/13/18 Wound Culture - Final, Complete 06/13/18 Gram Stain - Final, Resulted 06/13/18 Anaerobic Culture, Resulted Pending Discharge Medications Scheduled Amoxicillin/Potassium Clav (Augmentin 875-125 Tablet) 1 Each Tablet, 1 TAB PO BID Atorvastatin Calcium (Lipitor) 20 Mg Tab, 20 MG PO QPM, (Reported) Fluticasone/Vilanterol (Breo Ellipta 200-25 Mcg INH) 1 Each Blst.w.dev, 1 PUFF INH DAILY, (Reported) Nicotine (Nicotine Patch) 21 Mg Patch.td24, 1 PATCH TD DAILY Umeclidinium [place] (Incruse Ellipta) 62.5 Mcg Blst.w.dev, 1 PUFF INH DAILY, (Reported) Scheduled PRN Albuterol Sulfate (Ventolin Hfa) 18 Gm Hfa.aer.ad, 2 PUFF INH Q4H PRN for SOB/COUGH, (Reported) Diazepam (Valium) 5 Mg Tab, 5 MG PO DAILY PRN for ANXIETY/AGITATION, (Reported) Naproxen (Naproxen) 500 Mg Tab, 1,000 MG PO TID PRN for PAIN, (Reported) Allergies Coded Allergies: ibuprofen (Verified Allergy, Unknown, 06/12/18) cyclobenzaprine (Verified Adverse Reaction, Unknown, 06/12/18) VALENTE MAHMOOD MD Jun 16, 2018 11:38
== END 2018-06-16 12:15 | disposition home or self-care (01) | DRG 98 ==
LOC: M ED 22:00 → M ED INP 06-13 01:51 → M MS5PR 06-13 03:15 → OBSVTOIN 06-16 06:57
PROVIDERS: ADMIT Internal Medicine; ATTEND Internal Medicine
PROC: 0W933ZZ Drainage of Oral Cavity and Throat, Percutaneous Approach (ICD-10-PCS; principal; 2018-06-13)
DX: K12.2 Cellulitis and abscess of mouth (principal); E78.5 Hyperlipidemia, unspecified; J45.909 Unspecified asthma, uncomplicated; F17.200 Nicotine dependence, unspecified, uncomplicated; M54.2 Cervicalgia; M54.5 Low back pain; Z79.899 Other long term (current) drug therapy; Z88.6 Allergy status to analgesic agent; Z88.8 Allergy status to other drugs, medicaments and biological substances

== ENCOUNTER → 2018-09-28 | Outpatient (CLI) | payer BC ==
[~2018-09-28] MED LIST changes: +AUGM875T28 PO; +BREO1INH3 INH; +DOXY-350 PO; +INCR1INH INH; +NICO21PAT TD; +VENTAER INH
== END ==
LOC: M RAD 12:05
PROVIDERS: ATTEND Otolaryngology
DX: R22.1 Localized swelling, mass and lump, neck (principal); Z53.9 Procedure and treatment not carried out, unspecified reason

== ENCOUNTER → 2018-09-29 | Outpatient (CLI) | payer BC ==
[~2018-09-29] MED LIST changes: +PROHANCE 279.3MG/ML 15ML VIAL (A9576) As Ordered ONE; +PROHANCE 279.3MG/ML 5ML VIAL (A9576) As Ordered ONE
--- NOTE | 2018-09-29 22:20 | REPVR ---
EXAM: MR Neck Without and With Contrast EXAM DATE/TIME: 09/29/2018 2:29 PM CLINICAL HISTORY: 53 years old, male; Mass, lump, or swelling; Other: Under the chin, fu submandibular abscess; Additional info: Localized swelling/mass and lump of neck TECHNIQUE: Imaging protocol: MR images of the neck without and with intravenous contrast. Contrast material: PROHANCE;Contrast volume: 19 ml;Contrast route: IV; COMPARISON: CT Neck with contrast 06/13/2018 12:37 AM FINDINGS: Nasopharynx: Unremarkable. Oropharynx: Unremarkable. Hypopharynx: Unremarkable. Larynx: Unremarkable. Submandibular/Parotid glands: Partial failure of fat saturation limits evaluation of the submental region, although the previously visualized fluid collection/abscess in this region appears to have resolved. Sinuses: A mucous retention cyst or polyp is visualized within the left maxillary sinus. Retropharyngeal space: Unremarkable. Thyroid: No discrete thyroid nodule or cyst visualized. Vasculature: There is preservation of the flow voids within the vertebral and extracranial carotid arteries, as visualized. Lymph nodes: Mildly enlarged level 2 cervical lymph nodes are identified bilaterally. A right level 2 cervical lymph node measures 1.3 cm in length. Soft tissues: Limited by partial failure of fat saturation. Aside from the areas of limitation, no significant swelling visualized. Bones/joints: Unremarkable. Lungs: Evaluation of the lungs is limited on MRI. IMPRESSION: 1. Partial failure of fat saturation limits evaluation of the submental region, although the previously visualized fluid collection/abscess in this region appears to have resolved. 2. Mildly enlarged level 2 cervical lymph nodes are identified bilaterally. 3. Additional findings described above. Electronically signed by: Samuel Camarena On 09/29/2018 22:20:19 PM
== END ==
LOC: M RAD 13:04
PROVIDERS: ATTEND Otolaryngology
DX: R22.1 Localized swelling, mass and lump, neck (principal)

== ENCOUNTER → 2019-06-15 | Outpatient (CLI) | payer BC ==
[~2019-06-15] MED LIST changes: -PROHANCE 279.3MG/ML 15ML VIAL (A9576) As Ordered ONE; +PROHANCE 279.3MG/ML 15ML VIAL As Ordered ONE; -PROHANCE 279.3MG/ML 5ML VIAL (A9576) As Ordered ONE; +PROHANCE 279.3MG/ML 5ML VIAL As Ordered ONE
--- NOTE | 2019-06-15 12:27 | REP ---
MRI FACE AND NECK SOFT TISSUES: Without and with IV gadolinium: HISTORY: Localized swelling, mass and lump in the neck. Pain from the right upper throat and submandibular triangle. Comparison study September 29, 2018. Comparison CT study June 13, 2018 showed a 2.6 cm abscess in the submandibular space. TECHNIQUE: Axial and coronal imaging planes utilized. T1- and T2-weighted sequences are included with and without fat saturation. The gadolinium enhancement dose is 19 mL of intravenous ProHance. MRI FINDINGS: Cortical and medullary bone signal intensity are normal in the mandible and visualize maxillary bones. No cervical spine or skeletal abnormality is seen. There is no evidence of soft tissue abscess. No intraorbital abnormality is appreciated. The parotid and submandibular glands are normal and symmetric. There is no evidence of cervical lymphadenopathy or abnormal fluid collection. The platysma does not appear inflamed on either side. No vascular abnormality is seen. IMPRESSION: No soft tissue abscess or inflammatory change is seen. Electronically Signed by Jesus Rausch MD 06/15/2019 01:17 P
== END ==
LOC: M RAD 08:30
PROVIDERS: ATTEND Otolaryngology
DX: R22.1 Localized swelling, mass and lump, neck (principal)
CPT/HCPCS: 70543; A9576

== ENCOUNTER → 2019-10-13 | Outpatient (CLI) | payer BC ==
[~2019-10-13] MED LIST changes: -PROHANCE 279.3MG/ML 15ML VIAL As Ordered ONE; -PROHANCE 279.3MG/ML 5ML VIAL As Ordered ONE
--- NOTE | 2019-10-20 14:03 | REP ---
LOW-DOSE LUNG SCREENING EXAMINATION CLINICAL: High risk factors. Nicotine dependence. TECHNIQUE: Axial noncontrast images from the thoracic inlet to the upper abdomen using lung screening technique. COMPARISON: 11/26/2017. FINDINGS: Lung devries are well-inflated and demonstrate mild emphysematous changes. A stable 3-mm noncalcified subpleural nodule along the left lower lobe (Image 88) remains unchanged. No new acute significant nodule, mass, or consolidation. No effusion. No pneumothorax. Tracheobronchial tree is patent. Limited evaluation of the mediastinum demonstrates atherosclerotic disease without cardiomegaly. IMPRESSION: Lung-RADS Category 1 examination. No significant or suspicious nodules or abnormalities. Management and recommendations include annual low-dose follow-up evaluation. [facility]
== END ==
LOC: M RAD 09:52
PROVIDERS: ATTEND Internal Medicine Pulmonary Disease
DX: Z12.2 Encounter for screening for malignant neoplasm of respiratory organs (principal); F17.210 Nicotine dependence, cigarettes, uncomplicated

== ENCOUNTER → 2020-10-16 | Outpatient (CLI) | payer BC ==
--- NOTE | 2020-10-18 05:22 | REP ---
INDICATION: NICOTINE DEPENDENCE COMPARISON: 10/13/2019 TECHNIQUE: Axial noncontrast images from the thoracic inlet to the upper abdomen using low-dose lung screening technique (LDCT). FINDINGS: Bilateral lung devries are well aerated, symmetric and essentially clear. Very minimal emphysematous changes are again suggested. Small stable noncalcified 3 mm nodules are unchanged. No consolidation, significant nodule or mass lesion identified. Tracheobronchial tree is patent. No effusion. No pneumothorax. Mediastinum is relatively stable/normal. IMPRESSION: Lung-RADS category 1. No suspicious nodule or mass lesion. Management recommendations include annual low-dose CT surveillance. <Electronically signed by Soren Simmons > 10/18/20 [id number]
== END ==
LOC: M RAD 17:05
PROVIDERS: ATTEND Internal Medicine Pulmonary Disease
DX: Z12.2 Encounter for screening for malignant neoplasm of respiratory organs (principal); F17.210 Nicotine dependence, cigarettes, uncomplicated

== ENCOUNTER 2020-11-14 07:59 | Emergency (ER) | payer BC ==
[~2020-11-14] VITALS: Ht 182.9 cm; Wt 91.7 kg
[2020-11-14] MEDS ORDERED: methocarbamoL 750 MG TAB PO ONE (11:40)
[2020-11-14] MEDS ORDERED: KETOROLAC 60MG 2ML VIAL IM ONE (12:00)
--- NOTE | 2020-11-14 12:05 | REP ---
INDICATION: neck pain/left weakness. COMPARISON: None. TECHNIQUE: Helical scanning is acquired. 5 mm axial images were reformatted. Coronal MPR images were generated. FINDINGS: Digital preliminary varnisher plasticoater radiograph are unremarkable. On bone window settings, the bony calvarium is intact. There is some vascular calcification in the distal internal carotid arteries bilaterally. There is no evidence of paranasal sinus disease. No intraorbital abnormality is seen. On soft tissue window settings, there is a well circumscribed low-density area in the sub insular white matter of the right basal ganglia region consistent with a lacunar infarct. No acute infarction is seen. There is minimal small vessel change in the periventricular white matter. There is no evidence of intracranial hemorrhage, extra-axial fluid collection or mass. There is minimal generalized volume loss. IMPRESSION: Old lacunar infarct in the subinsular region on the right. Minimal generalized volume loss and vascular calcification. No acute intracranial abnormality. <Electronically signed by Sam Rausch > 11/14/20 [id number]
--- NOTE | 2020-11-14 12:08 | REP ---
INDICATION: neck pain/left weakness. COMPARISON: Comparison CT study June 13, 2018. TECHNIQUE: Helical scanning is acquired and overlapping 2 mm high resolution axial images were generated and reviewed at bone and soft tissue window settings. Coronal and sagittal multiplanar re-formations images are generated. FINDINGS: There is straightening of the normal cervical lordosis. Cervical vertebral body heights are preserved. Alignment is normal. There is diffuse degenerative disc disease at each level from C3-4 through C6-7 with disc space narrowing as well as anterior and posterior osteophytic ridging. These changes are most pronounced at C5-6 where there is diffuse disc bulging. There is bilateral uncovertebral spurring at C5-6, left more so than right producing 4 month mild foraminal narrowing. There is osteoarthritic facet disease at multiple levels bilaterally in the mid cervical spine. On the right this is most bone pronounced at C2-3 and on the left at C3-4. No bony destructive lesion is seen. No extra-spinal mass or hematoma is seen. The lung apices are clear. IMPRESSION: Degenerative spondylosis changes as above. No acute bony abnormality. <Electronically signed by Sam Rausch > 11/14/20 [id number]
[2020-11-14] MEDS ORDERED: METH-1165 PO (12:51)
[2020-11-14] MEDS ORDERED: PRED20TA PO (12:51)
[2020-11-14 13:05] VITALS: BP 148/81
== END 2020-11-14 13:05 | disposition home or self-care (01) ==
LOC: M ED 07:59
DX: M50.222 Other cervical disc displacement at C5-C6 level (principal); M47.812 Spondylosis without myelopathy or radiculopathy, cervical region; M25.78 Osteophyte, vertebrae; M48.02 Spinal stenosis, cervical region; E78.5 Hyperlipidemia, unspecified; R25.1 Tremor, unspecified; F17.200 Nicotine dependence, unspecified, uncomplicated; Z88.6 Allergy status to analgesic agent; Z88.8 Allergy status to other drugs, medicaments and biological substances; Z79.899 Other long term (current) drug therapy
CPT/HCPCS: 70450; 72125; 96372; 99283; J1885

== ENCOUNTER → 2021-01-23 | Outpatient (REF) | payer BC ==
[~2021-01-23] MED LIST changes: +METH-1165 PO; +PRED20TA PO
[2021-01-23 18:29] LABS: FOLATE 7.4 NG/ML
== END ==
LOC: M LAB REF 16:53
PROVIDERS: ATTEND Family Medicine
DX: R20.0 Anesthesia of skin (principal); R25.1 Tremor, unspecified

== ENCOUNTER 2021-07-17 20:13 | Emergency (ER) | payer BC ==
[~2021-07-17] VITALS: Ht 182.9 cm; Wt 90.6 kg
[2021-07-17 22:13] VITALS: BP 138/85
[2021-07-17 22:52] LABS: GC DNA AMPLIFICATION NEGATIVE (NEGATIVE)
== END 2021-07-17 22:17 | disposition home or self-care (01) ==
LOC: M ED 20:13
DX: N45.2 Orchitis (principal); N44.00 Torsion of testis, unspecified; J44.9 Chronic obstructive pulmonary disease, unspecified; M54.50 Low back pain, unspecified; F17.200 Nicotine dependence, unspecified, uncomplicated; Z88.6 Allergy status to analgesic agent; Z88.8 Allergy status to other drugs, medicaments and biological substances; Z79.51 Long term (current) use of inhaled steroids; Z79.899 Other long term (current) drug therapy

== ENCOUNTER → 2021-12-10 | Outpatient (CLI) | payer BC | LOC: M RAD 08:26 | PROVIDERS: ATTEND Internal Medicine Critical Care Medicine | DX: Z12.2 Encounter for screening for malignant neoplasm of respiratory organs (principal); J44.9 Chronic obstructive pulmonary disease, unspecified ==

== ENCOUNTER → 2022-04-29 | Outpatient (CLI) | payer BC ==
[~2022-04-29] MED LIST changes: -DOXY-350 PO; +DOXY-444 PO; +GASTROGRAFIN SOLUTION 30ML As Ordered ONE; +ISOVUE-370 76% 100ML VIAL As Ordered ONE
== END ==
LOC: M RAD 15:44
PROVIDERS: ATTEND Family Medicine
DX: N42.83 Cyst of prostate (principal); K44.9 Diaphragmatic hernia without obstruction or gangrene; R10.2 Pelvic and perineal pain

== ENCOUNTER → 2022-08-05 | Outpatient (CLI) | payer BC ==
[~2022-08-05] MED LIST changes: -GASTROGRAFIN SOLUTION 30ML As Ordered ONE; +ISOVUE-300 61% 100ML VIAL ONE; -ISOVUE-370 76% 100ML VIAL As Ordered ONE; +LIDOCAINE 1% MDV 20ML VIAL ONE; +methylPREDNISolone 80MG/ML SUSP 1ML VIAL ONE
== END ==
LOC: M PLAIMG 12:27
DX: M25.551 Pain in right hip (principal)
CPT/HCPCS: 20610; 77002; J1040; Q9967

== ENCOUNTER → 2023-02-07 | Outpatient (CLI) | payer BC ==
[~2023-02-07] MED LIST changes: -ISOVUE-300 61% 100ML VIAL ONE; -LIDOCAINE 1% MDV 20ML VIAL ONE; -methylPREDNISolone 80MG/ML SUSP 1ML VIAL ONE
== END ==
LOC: M RAD 08:32
PROVIDERS: ATTEND Internal Medicine Critical Care Medicine
DX: Z12.2 Encounter for screening for malignant neoplasm of respiratory organs (principal); F17.218 Nicotine dependence, cigarettes, with other nicotine-induced disorders; R91.1 Solitary pulmonary nodule; I25.10 Atherosclerotic heart disease of native coronary artery without angina pectoris

== ENCOUNTER 2023-04-15 06:07 | Day surgery (SDC) | payer BC ==
[~2023-04-15] VITALS: Ht 182.9 cm; Wt 90.0 kg
[2023-04-15] MEDS: LR 1,000 ML IV SCH (07:06)
[2023-04-15] MEDS ORDERED: ROCURONIUM BROMIDE 50MG/5ML VIAL As Ordered ONE (07:09)
[2023-04-15] MEDS ORDERED: LIDOCAINE 2% 100MG/5ML SDV (FOR ANES.) As Ordered ONE (07:09)
[2023-04-15] MEDS ORDERED: KETOROLAC 60MG 2ML VIAL As Ordered ONE (07:09)
[2023-04-15] MEDS ORDERED: MIDAZOLAM INJ 2MG/2ML VIAL As Ordered ONE (07:09)
[2023-04-15] MEDS ORDERED: fentaNYL 100 MCG/2 ML INJECTION As Ordered ONE (07:09)
[2023-04-15] MEDS ORDERED: SUGAMMADEX SODIUM 500 MG/5 ML VIAL (BRIDION) As Ordered ONE (07:09)
[2023-04-15] MEDS ORDERED: propofoL 200 MG/20 ML VIAL As Ordered ONE (07:09)
[2023-04-15] MEDS ORDERED: ONDANSETRON 4MG 2ML VIAL As Ordered ONE (07:09)
[2023-04-15] MEDS ORDERED: ACETAMINOPHEN 1000MG 100ML IV BAG As Ordered ONE (07:10)
[2023-04-15] MEDS: ceFAZolin SOD 2 GM in IV 1 EA IV ONE (07:31)
[2023-04-15] MEDS ORDERED: LABETALOL 100MG/20ML VIAL As Ordered ONE (08:09)
[2023-04-15] MEDS ORDERED: oxyCODONE 5MG TAB PO PRN (08:50)
[2023-04-15] MEDS ORDERED: fentaNYL 100 MCG/2 ML INJECTION IV PRN (08:50)
[2023-04-15] MEDS ORDERED: ONDANSETRON 4MG 2ML VIAL IV PRN (08:50)
[2023-04-15] MEDS: PERCOCET 5MG/325MG TAB PO PRN (09:14)
[2023-04-15] MEDS ORDERED: NS 1,000 ML IV SCH (09:15)
[2023-04-15] MEDS ORDERED: PERCOCET 5MG/325MG TAB PO PRN (09:30)
[2023-04-15 10:09] VITALS: BP 133/72; TEMP 97.6; O2SAT 97
== END 2023-04-15 10:09 | disposition home or self-care (01) ==
LOC: M SDC 06:07
PROVIDERS: ATTEND Surgery
DX: K40.90 Unilateral inguinal hernia, without obstruction or gangrene, not specified as recurrent (principal); J44.9 Chronic obstructive pulmonary disease, unspecified; E78.00 Pure hypercholesterolemia, unspecified; Z79.899 Other long term (current) drug therapy; Z79.51 Long term (current) use of inhaled steroids; F17.210 Nicotine dependence, cigarettes, uncomplicated; Z88.8 Allergy status to other drugs, medicaments and biological substances; Z88.6 Allergy status to analgesic agent
CPT/HCPCS: 49650; C1781; J0131; J0665; J0690; J1100; J1885; J1920; J2250; J2405; J3010; S2900

== ENCOUNTER 2023-07-15 09:47 | Day surgery (SDC) | payer BC ==
[~2023-07-15] VITALS: Ht 182.9 cm; Wt 91.6 kg
[~2023-07-15 09:47] MED LIST changes: +DOXY-440 PO; -DOXY-444 PO
[2023-07-15] MEDS: LR 1,000 ML IV SCH (10:36)
[2023-07-15] MEDS ORDERED: MIDAZOLAM INJ 2MG/2ML VIAL As Ordered ONE (11:12)
[2023-07-15] MEDS ORDERED: fentaNYL 100 MCG/2 ML INJECTION As Ordered ONE (11:12)
[2023-07-15] MEDS ORDERED: LIDOCAINE 2% 100MG/5ML SDV (FOR ANES.) As Ordered ONE (11:13)
[2023-07-15] MEDS ORDERED: propofoL 200 MG/20 ML VIAL As Ordered ONE (11:13)
[2023-07-15] MEDS ORDERED: SUGAMMADEX SODIUM 500 MG/5 ML VIAL (BRIDION) As Ordered ONE (12:39)
[2023-07-15 12:50] VITALS: BP 132/71; TEMP 97.8; O2SAT 97
== END 2023-07-15 13:11 | disposition home or self-care (01) ==
LOC: M SDC 09:47
PROVIDERS: ATTEND Surgery
DX: D17.0 Benign lipomatous neoplasm of skin and subcutaneous tissue of head, face and neck (principal); F17.218 Nicotine dependence, cigarettes, with other nicotine-induced disorders; Z88.8 Allergy status to other drugs, medicaments and biological substances; E78.5 Hyperlipidemia, unspecified; J44.9 Chronic obstructive pulmonary disease, unspecified; L40.9 Psoriasis, unspecified; Z79.51 Long term (current) use of inhaled steroids; Z79.899 Other long term (current) drug therapy
CPT/HCPCS: 11422; 88304; J0665; J2250; J3010

== ENCOUNTER 2023-08-22 22:23 | Emergency (ER) | payer BC ==
[~2023-08-22] VITALS: Ht 182.9 cm; Wt 89.8 kg
[2023-08-22 23:31] LABS: BASO % 0.3 % (0.0-1.0); EOS # 0.1 10^3/uL (0.0-0.5); EOS % 0.7 % (0.0-3.0); HEMATOCRIT 43.6 % (42.0-52.0); HEMOGLOBIN 14.6 g/dl (13.5-17.5); LYMPH # 1.7 10^3/uL (1.5-5.0); LYMPH % 11.6 % (24.0-44.0); MEAN CORPUSCULAR HEMOGLOBIN 28.7 pg (27.0-33.0); MEAN CORPUSCULAR HGB CONC 33.5 g/dl (32.0-36.5); MEAN CORPUSCULAR VOLUME 85.8 fl (80.0-96.0); MONO % 6.4 % (2.0-8.0); NEUTROPHILS # 11.9 10^3/uL (1.5-8.5); NEUTROPHILS % 80.5 % (36.0-66.0); PLATELET COUNT, AUTOMATED 211 10^3/uL (150-450); RED BLOOD COUNT 5.08 10^6/uL (4.30-6.10); WHITE BLOOD COUNT 14.8 10^3/uL (4.0-10.0)
[2023-08-22 23:56] LABS: ALBUMIN 3.4 G/DL (3.2-5.2); ALKALINE PHOSPHATASE 84 U/L (46-116); ALT/SGPT 21 U/L (7.0-40); AST/SGOT 11 U/L (<34); BILIRUBIN,DIRECT 0.2 MG/DL (<0.4); BILIRUBIN,TOTAL 0.7 MG/DL (0.3-1.2); BLOOD UREA NITROGEN 16 MG/DL (9-23); CALCIUM LEVEL 8.7 MG/DL (8.5-10.1); CARBON DIOXIDE LEVEL 22 MMOL/L (20-31); CHLORIDE LEVEL 106 MMOL/L (98-107); GLOMERULAR FILTRATION RATE > 60.0 (>56); GLUCOSE, FASTING 123 MG/DL (60-100); POTASSIUM SERUM 3.8 MMOL/L (3.5-5.1); SODIUM LEVEL 135 MMOL/L (136-145); TOTAL PROTEIN 6.3 G/DL (5.7-8.2)
[2023-08-23] MEDS: LevoFLOXacin 750 MG TABLET PO ONE (00:18)
[2023-08-23] MEDS: LIDOCAINE 5% (LIDODERM) PATCH TD ONE (00:18)
[2023-08-23] MEDS: diazePAM 10MG/2ML SYRINGE IM ONE (00:24)
[2023-08-23] MEDS ORDERED: LEVO1TAB40 PO (00:35)
[2023-08-23] MEDS ORDERED: HYDR-3713 PO (00:35)
[2023-08-23] MEDS ORDERED: LIDO5DIS41 TD (00:35)
[2023-08-23] MEDS: ACETAMINOPHEN TAB 650MG DOSE (2X325MG) PO ONE (01:10)
[2023-08-23 02:15] VITALS: BP 118/69; TEMP 98.5; O2SAT 95
== END 2023-08-23 02:23 | disposition home or self-care (01) ==
LOC: M ED 22:23
DX: J18.9 Pneumonia, unspecified organism (principal); S46.912A Strain of unspecified muscle, fascia and tendon at shoulder and upper arm level, left arm, initial encounter; X50.0XXA Overexertion from strenuous movement or load, initial encounter; J44.9 Chronic obstructive pulmonary disease, unspecified; F41.9 Anxiety disorder, unspecified; E78.5 Hyperlipidemia, unspecified; F17.200 Nicotine dependence, unspecified, uncomplicated; F10.10 Alcohol abuse, uncomplicated; Z88.6 Allergy status to analgesic agent; Z88.8 Allergy status to other drugs, medicaments and biological substances; Y92.9 Unspecified place or not applicable; Y93.9 Activity, unspecified; Y99.9 Unspecified external cause status; Z79.52 Long term (current) use of systemic steroids; Z79.02 Long term (current) use of antithrombotics/antiplatelets; Z79.899 Other long term (current) drug therapy; Z79.1 Long term (current) use of non-steroidal anti-inflammatories (NSAID)
CPT/HCPCS: 71045; 73010; 73030; 80048; 80076; 85025; 87486; 87581; 87633; 87798; 93005; 93041; 94760; 96372; 99284; J3360

== ENCOUNTER → 2023-09-12 | Outpatient (CLI) | payer BC ==
[~2023-09-12] MED LIST changes: +HYDR-3713 PO; +LEVO1TAB40 PO; +LIDO5DIS41 TD
[2023-09-12 13:52] LABS: BASO % 0.2 % (0.0-1.0); EOS % 0.2 % (0.0-3.0); HEMOGLOBIN 12.8 g/dl (13.5-17.5); LYMPH # 0.9 10^3/uL (1.5-5.0); LYMPH % 4.3 % (24.0-44.0); MEAN CORPUSCULAR HEMOGLOBIN 27.9 pg (27.0-33.0); MEAN CORPUSCULAR HGB CONC 32.8 g/dl (32.0-36.5); MONO # 0.4 10^3/uL (0.0-0.8); NEUTROPHILS # 18.4 10^3/uL (1.5-8.5); NEUTROPHILS % 92.6 % (36.0-66.0); PLATELET COUNT, AUTOMATED 379 10^3/uL (150-450); RED BLOOD COUNT 4.59 10^6/uL (4.30-6.10); WHITE BLOOD COUNT 19.9 10^3/uL (4.0-10.0)
[2023-09-12 14:23] LABS: BLOOD UREA NITROGEN 13 MG/DL (9-23); CALCIUM LEVEL 9.4 MG/DL (8.5-10.1); CARBON DIOXIDE LEVEL 26 MMOL/L (20-31); CHLORIDE LEVEL 106 MMOL/L (98-107); CREATININE FOR GFR 0.98 MG/DL (0.70-1.30); GLOMERULAR FILTRATION RATE > 60.0 (>56); GLUCOSE, FASTING 127 MG/DL (60-100); POTASSIUM SERUM 4.5 MMOL/L (3.5-5.1); SODIUM LEVEL 138 MMOL/L (136-145)
[2023-09-12 14:30] LABS: PROCALCITONIN 0.11 ng/ml
== END ==
LOC: M RAD 12:59
PROVIDERS: ATTEND Internal Medicine Critical Care Medicine
DX: J18.9 Pneumonia, unspecified organism (principal)

== ENCOUNTER → 2023-09-28 | Outpatient (CLI) | payer BC | LOC: M RAD 08:38 | PROVIDERS: ATTEND Internal Medicine Critical Care Medicine | DX: J18.9 Pneumonia, unspecified organism (principal) ==

== ENCOUNTER → 2023-09-29 | Outpatient (REF) | payer BC | LOC: M LAB REF 10:01 | PROVIDERS: ATTEND Internal Medicine Critical Care Medicine | DX: J18.9 Pneumonia, unspecified organism (principal) ==

== ENCOUNTER → 2023-10-16 | Outpatient (CLI) | payer BC | LOC: M RAD 11:06 | PROVIDERS: ATTEND Internal Medicine Critical Care Medicine | DX: J18.9 Pneumonia, unspecified organism (principal); R91.8 Other nonspecific abnormal finding of lung field ==

== ENCOUNTER 2023-11-05 07:42 | Day surgery (SDC) | payer BC ==
[~2023-11-05] VITALS: Ht 182.9 cm; Wt 82.5 kg
[~2023-11-05 07:42] MED LIST changes: +IPRA0.00 INH
[2023-11-05] MEDS: LR 1,000 ML IV SCH (08:24)
[2023-11-05] MEDS ORDERED: LIDOCAINE 2% 100MG/5ML SDV (FOR ANES.) As Ordered ONE (08:40)
[2023-11-05] MEDS ORDERED: ROCURONIUM BROMIDE 50MG/5ML VIAL As Ordered ONE (08:40)
[2023-11-05] MEDS ORDERED: ONDANSETRON 4MG 2ML VIAL As Ordered ONE (08:40)
[2023-11-05] MEDS ORDERED: propofoL 200 MG/20 ML VIAL As Ordered ONE (08:40)
[2023-11-05] MEDS ORDERED: MIDAZOLAM INJ 2MG/2ML VIAL As Ordered ONE (08:40)
[2023-11-05] MEDS ORDERED: fentaNYL 100 MCG/2 ML INJECTION As Ordered ONE (08:40)
[2023-11-05] MEDS: ALBUTEROL SULFATE 2.5MG/0.5ML INH NEB SOLN INH ONE (09:18)
[2023-11-05] MEDS: LIDOCAINE PRES-FREE 2% 10ML AMP NEB ONE (09:18)
[2023-11-05] MEDS: EPINEPHrine 1MG/10ML SYRINGE 1.5IN As Ordered ONE (10:20)
[2023-11-05] MEDS: CETACAINE SPRAY 5GM As Ordered ONE (10:20)
[2023-11-05] MEDS ORDERED: SUGAMMADEX SODIUM 500 MG/5 ML VIAL (BRIDION) As Ordered ONE (10:21)
[2023-11-05] MEDS ORDERED: ONDANSETRON 4MG 2ML VIAL IV PRN (10:35)
[2023-11-05] MEDS ORDERED: LR 1,000 ML IV SCH (10:35)
[2023-11-05] MEDS ORDERED: fentaNYL 100 MCG/2 ML INJECTION IV PRN (10:35)
[2023-11-05] MEDS ORDERED: oxyCODONE 5MG TAB PO PRN (10:40)
[2023-11-05] MEDS ORDERED: HYDROMORPHONE HCL 0.5 MG/ 0.5 ML SYRINGE IV PRN (10:40)
[2023-11-05 11:20] VITALS: BP 118/85; TEMP 97.9; O2SAT 98
== END 2023-11-05 11:39 | disposition home or self-care (01) ==
LOC: M SDC 07:42
PROVIDERS: ATTEND Internal Medicine Critical Care Medicine
DX: R91.8 Other nonspecific abnormal finding of lung field (principal); J44.9 Chronic obstructive pulmonary disease, unspecified; F17.218 Nicotine dependence, cigarettes, with other nicotine-induced disorders; E78.00 Pure hypercholesterolemia, unspecified; G25.0 Essential tremor; Z79.51 Long term (current) use of inhaled steroids; Z79.899 Other long term (current) drug therapy; Z88.8 Allergy status to other drugs, medicaments and biological substances; Z88.6 Allergy status to analgesic agent
CPT/HCPCS: 31624; 31628; 71045; 76000; 87070; 87102; 87116; 87205; 87206; 88104; 88108; 88305; 88313; J1100; J2250; J2405; J3010

== ENCOUNTER → 2024-01-14 | Outpatient (CLI) | payer BC | LOC: M PLAIMG 09:14 | PROVIDERS: ATTEND Internal Medicine Critical Care Medicine | DX: R91.8 Other nonspecific abnormal finding of lung field (principal) ==

== ENCOUNTER → 2024-02-02 | Outpatient (REF) | payer BC | LOC: M LAB REF 13:18 | PROVIDERS: ATTEND Internal Medicine Critical Care Medicine | DX: J18.9 Pneumonia, unspecified organism (principal) ==

== ENCOUNTER → 2024-04-16 | Outpatient (CLI) | payer BC | LOC: M RAD 14:54 | PROVIDERS: ATTEND Internal Medicine Critical Care Medicine | DX: J44.9 Chronic obstructive pulmonary disease, unspecified (principal) ==

== ENCOUNTER → 2024-05-25 | Outpatient (REF) | payer BC ==
[2024-05-25 14:20] LABS: BASO # 0.1 10^3/uL (0.0-0.2); BASO % 0.6 % (0.0-1.0); EOS # 0.2 10^3/uL (0.0-0.5); EOS % 2.3 % (0.0-3.0); HEMATOCRIT 45.3 % (42.0-52.0); HEMOGLOBIN 14.8 g/dl (13.5-17.5); LYMPH # 2.6 10^3/uL (1.5-5.0); LYMPH % 29.5 % (24.0-44.0); MEAN CORPUSCULAR HEMOGLOBIN 28.1 pg (27.0-33.0); MEAN CORPUSCULAR HGB CONC 32.7 g/dl (32.0-36.5); MEAN CORPUSCULAR VOLUME 86.1 fl (80.0-96.0); MONO # 0.5 10^3/uL (0.0-0.8); MONO % 5.9 % (2.0-8.0); NEUTROPHILS # 5.3 10^3/uL (1.5-8.5); NEUTROPHILS % 61.4 % (36.0-66.0); PLATELET COUNT, AUTOMATED 200 10^3/uL (150-450); RED BLOOD COUNT 5.26 10^6/uL (4.30-6.10); WHITE BLOOD COUNT 8.6 10^3/uL (4.0-10.0)
== END ==
LOC: M LAB REF 13:11
PROVIDERS: ATTEND Internal Medicine Critical Care Medicine
DX: F17.218 Nicotine dependence, cigarettes, with other nicotine-induced disorders (principal)

== ENCOUNTER → 2024-06-15 | Outpatient (CLI) | payer BC | LOC: M RAD 14:17 | PROVIDERS: ATTEND Otolaryngology | DX: R59.0 Localized enlarged lymph nodes (principal) ==

== ENCOUNTER 2024-11-14 01:25 | Observation (INO) | payer BC ==
[~2024-11-14] VITALS: Ht 182.9 cm; Wt 77.3 kg
[~2024-11-14 01:25] MED LIST changes: +LIDO1ADH93 TD; -LIDO5DIS41 TD
[2024-11-14 03:00] LABS: VENOUS BASE EXCESS 3.6 (-2.0-2.0); VENOUS HCO3 29.8 MMOL/L (23.0-27.0); VENOUS O2 SATURATION 56.9 % (60.0-80.0); VENOUS PARTIAL PRESSURE CO2 50.3 mmHg (38.0-50.0); VENOUS PARTIAL PRESSURE O2 31.5 mmHg (30.0-50.0); VENOUS PH 7.390 UNITS (7.330-7.430); VENOUS STANDARD HCO3 26.6 MMOL/L; VENOUS TOTAL CO2 31.3 MMOL/L (24.0-28.0)
[2024-11-14 03:07] LABS: BASO # 0.0 10^3/uL (0.0-0.2); BASO % 0.1 % (0.0-1.0); EOS # 0.0 10^3/uL (0.0-0.5); EOS % 0.0 % (0.0-3.0); LYMPH # 1.1 10^3/uL (1.5-5.0); LYMPH % 12.4 % (24.0-44.0); MONO # 0.5 10^3/uL (0.0-0.8); MONO % 5.6 % (2.0-8.0); NEUTROPHILS # 7.4 10^3/uL (1.5-8.5); NEUTROPHILS % 81.3 % (36.0-66.0); PLATELET COUNT, AUTOMATED 188 10^3/uL (150-450)
[2024-11-14 03:39] LABS: ALT/SGPT 28.0 U/L (7.0-40); AST/SGOT 29.0 U/L (<34); CALCIUM LEVEL 8.9 MG/DL (8.3-10.6); CARBON DIOXIDE LEVEL 28.0 MMOL/L (20-31); CHLORIDE LEVEL 104.0 MMOL/L (98-107); CK-MB VALUE MASS 5.2 NG/ML (<3.6); CPK CREATINE PHOSPHOKINASE 254.0 U/L (46-171); CREATININE FOR GFR 1.12 MG/DL (0.70-1.30); GLOMERULAR FILTRATION RATE 75.2 (>49); MB/CK RELATIVE INDEX 2.04 (< OR =4); POTASSIUM SERUM 4.6 MMOL/L (3.5-5.1); SODIUM LEVEL 141.0 MMOL/L (136-145)
[2024-11-14] MEDS ORDERED: ISOVUE-370 76% 100 ML VIAL As Ordered ONE (04:53)
[2024-11-14] MEDS: IPRATROPIUM 0.5 MG/ALBUTEROL 2.5 MG INH SOL UD 3 ML NEB SCH ×2 (05:05→11:27)
[2024-11-14 05:17] LABS: CK-MB VALUE MASS 4.6 NG/ML (<3.6)
[2024-11-14 05:19] LABS: CPK CREATINE PHOSPHOKINASE 215.0 U/L (46-171); MB/CK RELATIVE INDEX 2.13 (< OR =4)
[2024-11-14] MEDS ORDERED: NYST-38 PO (10:04)
[2024-11-14] MEDS ORDERED: PRED50TA57 PO (10:08)
[2024-11-14] MEDS ORDERED: LEVO75TAB PO (10:08)
[2024-11-14] MEDS ORDERED: ENSI3AMP INH (10:09)
[2024-11-14] MEDS ORDERED: NICO1DIS12 TD (10:10)
[2024-11-14] MEDS ORDERED: HOME MED LIST COMPLETE! XX SCH (10:15)
[2024-11-14] MEDS ORDERED: NICOTINE 21 MG/24 HR 1 EA TRANSDERMAL TD ONE (10:35)
[2024-11-14] MEDS ORDERED: ALBUTEROL SULFATE 2.5 MG/0.5 ML INH CONCENTRATE NEB SOLN NEB PRN (10:35)
[2024-11-14] MEDS: NICOTINE 21 MG/24 HR 1 EA TRANSDERMAL TD ONE (10:37)
[2024-11-14] MEDS: TIOTROPIUM BROM 2.5MCG/ACTUATION 4GM INH INH SCH (11:27)
[2024-11-14] MEDS: BUDESONIDE 0.5 MG/2 ML INHALATION SUSPENSION NEB SCH (11:27)
[2024-11-14] MEDS: NYSTATIN 500,000 UNITS/5 ML SUSP UDC PO SCH (13:48)
[2024-11-14] MEDS: ENOXAPARIN 40 MG/0.4 ML SYRINGE (J1650 PER 10MG) SC SCH (13:51)
[2024-11-14 13:59] VITALS: BP 108/75; TEMP 98.4; O2SAT 94
[2024-11-14 20:00] VITALS: BP 147/78; TEMP 98.4; O2SAT 94
[2024-11-14] MEDS: ATORVASTATIN 20 MG TAB PO SCH (20:10)
[2024-11-15] VITALS (8 sets, daily range): BP systolic 110–137; BP diastolic 58–74; TEMP 98.2–98.7; O2SAT 91–96
[2024-11-15 06:32] LABS: PLATELET COUNT, AUTOMATED 185 10^3/uL (150-450)
[2024-11-15 06:56] LABS: CALCIUM LEVEL 8.8 MG/DL (8.3-10.6); CARBON DIOXIDE LEVEL 25 MMOL/L (20-31); CHLORIDE LEVEL 104 MMOL/L (98-107); CREATININE FOR GFR 0.94 MG/DL (0.70-1.30); GLOMERULAR FILTRATION RATE > 90.0 (>49); POTASSIUM SERUM 4.4 MMOL/L (3.5-5.1); SODIUM LEVEL 136 MMOL/L (136-145)
[2024-11-15] MEDS: NICOTINE 21 MG/24 HR 1 EA TRANSDERMAL TD SCH (14:38)
[2024-11-16] VITALS (14 sets, daily range): BP systolic 125; BP diastolic 73; TEMP 97.9; O2SAT 93–96
[2024-11-16 09:01] LABS: BASO # 0.0 10^3/uL (0.0-0.2); BASO % 0.1 % (0.0-1.0); EOS # 0.0 10^3/uL (0.0-0.5); EOS % 0.0 % (0.0-3.0); LYMPH # 0.9 10^3/uL (1.5-5.0); LYMPH % 6.0 % (24.0-44.0); MONO # 0.5 10^3/uL (0.0-0.8); MONO % 3.2 % (2.0-8.0); NEUTROPHILS # 12.9 10^3/uL (1.5-8.5); NEUTROPHILS % 90.1 % (36.0-66.0); PLATELET COUNT, AUTOMATED 204 10^3/uL (150-450)
[2024-11-16 09:24] LABS: CALCIUM LEVEL 9.0 MG/DL (8.3-10.6); CARBON DIOXIDE LEVEL 25 MMOL/L (20-31); CHLORIDE LEVEL 104 MMOL/L (98-107); CREATININE FOR GFR 0.93 MG/DL (0.70-1.30); GLOMERULAR FILTRATION RATE > 90.0 (>49); POTASSIUM SERUM 4.1 MMOL/L (3.5-5.1); SODIUM LEVEL 136 MMOL/L (136-145)
[2024-11-16] MEDS ORDERED: PRED10TA2 PO (10:34)
== END 2024-11-16 13:20 | disposition home or self-care (01) ==
LOC: M ED 01:25 → M ED INP 01:26 → M MS4PR 13:59
PROVIDERS: ADMIT Internal Medicine; ATTEND Internal Medicine
DX: J44.1 Chronic obstructive pulmonary disease with (acute) exacerbation (principal); F41.9 Anxiety disorder, unspecified; F17.200 Nicotine dependence, unspecified, uncomplicated; Z79.899 Other long term (current) drug therapy; Z79.52 Long term (current) use of systemic steroids
CPT/HCPCS: 36415; 71045; 71275; 80048; 80076; 82550; 82553; 82803; 83605; 84484; 85025; 85027; 87040; 87070; 87205; 87486; 87581; 87633; 87798; 93005; 93041; 94640; 94760; 96372; 96374; 96376; 99285; J1650; J2919; Q9967

== ENCOUNTER → 2024-12-01 | Outpatient (REF) | payer BC ==
[~2024-12-01] MED LIST changes: +ENSI3AMP INH; +LEVO75TAB PO; +NICO1DIS12 TD; +NYST-38 PO; +PRED10TA2 PO; +PRED50TA57 PO
== END ==
LOC: M LAB REF 13:09
PROVIDERS: ATTEND Internal Medicine Critical Care Medicine
DX: J44.9 Chronic obstructive pulmonary disease, unspecified (principal)